=== PATIENT | male | born 1985 | race Caucasian/White ===

== ENCOUNTER 2016-10-16 18:34 | Emergency (ER) | payer OTHER ==
[~2016-10-16] VITALS: Ht 175.2 cm; Wt 90.7 kg
[~2016-10-16 18:34] MED LIST: 'PARAFON FORTE500 M1 PO; BACTRIM DS 8001 TA1 PO; CATAFLAM50 MG PO; CHERATUSSIN AC240 ML PO; CLARITIN10 MG PO; CYCLOBENZAPRINE10 MG PO; FLONASE ALLERG9.9 ML NAS; HYDROCODONE BIT1 T11 PO; INDOMETHACIN50 MG PO; MOTRIN800 MG PO; NAPROSYN500 MG PO; NKHM; NORCO 5-325 TA1 EACH PO; PREDNICOT20 MG PO; PREDNISONE10 MG PO; PREDNISONE50 MG PO; ROBITUSSIN AC 110 ML PO; SEPTRA DS 800 M1 TAB PO; ULTRAM50 MG PO; ZITHROMAX Z PA250 MG PO; ZOFRAN ODT4 MG SL; [UNRECOGNIZED DRUG - OTHER] TP
[2016-10-16] MEDS ORDERED: INDOMETHACIN50 MG PO (18:55)
[2016-10-16] MEDS ORDERED: HYDROCODONE BIT1 T11 PO (18:55)
== END 2016-10-16 18:58 | disposition home or self-care (01) ==
LOC: ED 18:34
DX: M10.9 Gout, unspecified (principal); F17.200 Nicotine dependence, unspecified, uncomplicated; I10 Essential (primary) hypertension

== ENCOUNTER 2016-11-01 15:30 | Emergency (ER) | payer OTHER ==
[~2016-11-01] VITALS: Ht 175.2 cm; Wt 90.7 kg
[2016-11-01] MEDS ORDERED: TESSALON PERLE100 M1 PO (17:18)
[2016-11-01] MEDS ORDERED: CLARITIN-D 12 H1 TAB PO (17:18)
[2016-11-01] MEDS ORDERED: HYCODAN/HYDROMET5 ML PO (17:18)
== END 2016-11-01 17:25 | disposition home or self-care (01) ==
LOC: ED 15:30
DX: J06.9 Acute upper respiratory infection, unspecified (principal)

== ENCOUNTER 2016-11-07 13:30 | Emergency (ER) | payer OTHER ==
[~2016-11-07 13:30] MED LIST changes: +CLARITIN-D 12 H1 TAB PO; +HYCODAN/HYDROMET5 ML PO; +TESSALON PERLE100 M1 PO
[2016-11-07 14:25] LABS: BASO # 0.1 10*3/uL (0.0-0.1); BASO % 0.6 % (0.0-1.0); EOS # 0.3 10*3/uL (0.0-0.4); EOS % 2.9 % (1.0-4.0); HEMATOCRIT 46.6 % (42.0-52.0); HEMOGLOBIN 14.7 g/dl (14.0-18.0); LYMPH # 1.4 10*3/uL (1.3-4.4); MEAN CORPUSCULAR HGB 23.7 pg (27.0-31.0); MEAN CORPUSCULAR HGB CONC 31.5 g/dl (33.0-37.0); MONO # 1.5 10*3/uL (0.1-1.0); MONO % 16.6 % (3.0-9.0); NEUT # 5.6 10*3/uL (2.3-7.9); NEUT % 63.4 % (47.0-73.0); PLATELET COUNT AUTOMATED 292 10*3/uL (130-400); RED BLOOD COUNT 6.21 10*6/uL (4.50-5.90); RED CELL DISTRI WIDTH 15.7 % (0-14.5); WHITE BLOOD COUNT 8.9 10*3/uL (4.8-10.8)
[2016-11-07 14:37] LABS: BUN 14 mg/dl (7-24); CARBON DIOXIDE 27 mmol/L (21-32); CHLORIDE 103 mmol/L (98-107); EST GLOM FILT AFRICAN AMERICAN > 60 ml/min; GLUCOSE 100 mg/dL (65-99); POTASSIUM 4.5 mmol/L (3.5-5.1); SODIUM 141 mmol/L (136-145)
[2016-11-07] MEDS ORDERED: PREDNISONE20 M1 PO (16:03)
[2016-11-07] MEDS ORDERED: PROAIR HFA8.5 GM INH (16:03)
[2016-11-07] MEDS ORDERED: VIBRAMYCIN100 MG PO (16:03)
== END 2016-11-07 16:19 | disposition home or self-care (01) ==
LOC: ED 13:30
PROVIDERS: Nurse Practitioner Family
DX: J20.9 Acute bronchitis, unspecified (principal); F17.200 Nicotine dependence, unspecified, uncomplicated

== ENCOUNTER 2017-01-05 13:24 | Emergency (ER) | payer OTHER ==
[~2017-01-05] VITALS: Wt 99.8 kg
[~2017-01-05 13:24] MED LIST changes: +PREDNISONE20 M1 PO; +PROAIR HFA8.5 GM INH; +VIBRAMYCIN100 MG PO
[2017-01-05] MEDS ORDERED: HYDROCODONE BIT1 T11 PO (13:48)
[2017-01-05] MEDS ORDERED: INDOMETHACIN50 MG PO (13:48)
== END 2017-01-05 13:54 | disposition home or self-care (01) ==
LOC: ED 13:24
DX: M10.9 Gout, unspecified (principal); I10 Essential (primary) hypertension; F17.200 Nicotine dependence, unspecified, uncomplicated; Z98.890 Other specified postprocedural states

== ENCOUNTER 2017-02-14 13:32 | Emergency (ER) | payer OTHER ==
[~2017-02-14] VITALS: Ht 177.8 cm; Wt 104.3 kg
[2017-02-14] MEDS ORDERED: HYDROCODONE BIT1 T11 PO (14:07)
[2017-02-14] MEDS ORDERED: INDOMETHACIN50 MG PO (14:07)
== END 2017-02-14 14:12 | disposition home or self-care (01) ==
LOC: ED 13:32
DX: M10.9 Gout, unspecified (principal); I10 Essential (primary) hypertension; F17.200 Nicotine dependence, unspecified, uncomplicated

== ENCOUNTER 2017-03-01 17:32 | Emergency (ER) | payer OTHER ==
[~2017-03-01] VITALS: Wt 104.3 kg
[2017-03-01] MEDS ORDERED: PREDNISONE20 M1 PO (18:19)
[2017-03-01] MEDS ORDERED: AMOXICILLIN500 M2 PO (18:19)
== END 2017-03-01 18:06 | disposition home or self-care (01) ==
LOC: ED 17:32
DX: J20.9 Acute bronchitis, unspecified (principal); M10.9 Gout, unspecified; F17.200 Nicotine dependence, unspecified, uncomplicated

== ENCOUNTER 2017-03-03 18:35 | Emergency (ER) | payer OTHER ==
[~2017-03-03] VITALS: Ht 177.8 cm; Wt 104.3 kg
[~2017-03-03 18:35] MED LIST changes: +AMOXICILLIN500 M2 PO
[2017-03-03] MEDS ORDERED: INDOMETHACIN50 MG PO (19:11)
== END 2017-03-03 19:59 | disposition home or self-care (01) ==
LOC: ED 18:35
DX: M10.9 Gout, unspecified (principal); I10 Essential (primary) hypertension; F17.200 Nicotine dependence, unspecified, uncomplicated

== ENCOUNTER 2017-06-28 16:20 | Emergency (ER) | payer OTHER ==
[~2017-06-28] VITALS: Ht 177.8 cm; Wt 113.4 kg
[2017-06-28] MEDS ORDERED: INDOMETHACIN50 MG PO (17:01)
== END 2017-06-28 19:39 | disposition home or self-care (01) ==
LOC: ED 16:20
DX: M10.9 Gout, unspecified (principal); M79.674 Pain in right toe(s); F17.200 Nicotine dependence, unspecified, uncomplicated; Z79.899 Other long term (current) drug therapy

== ENCOUNTER 2017-07-26 00:59 | Emergency (ER) | payer OTHER ==
[~2017-07-26] VITALS: Ht 177.8 cm; Wt 113.4 kg
[2017-07-26] MEDS ORDERED: CEPHALEXIN500 M1 PO (01:49)
== END 2017-07-26 02:04 | disposition home or self-care (01) ==
LOC: ED 00:59
DX: S61.212A Laceration without foreign body of right middle finger without damage to nail, initial encounter (principal); M10.9 Gout, unspecified; I10 Essential (primary) hypertension; Z79.899 Other long term (current) drug therapy; W25.XXXA Contact with sharp glass, initial encounter; Y93.89 Activity, other specified; Y92.89 Other specified places as the place of occurrence of the external cause; Y99.9 Unspecified external cause status

== ENCOUNTER 2017-10-05 23:49 | Emergency (ER) | payer OTHER ==
[~2017-10-05] VITALS: Ht 177.8 cm; Wt 113.4 kg
[~2017-10-05 23:49] MED LIST changes: +CEPHALEXIN500 M1 PO
[2017-10-06] MEDS ORDERED: INDOMETHACIN50 MG PO (00:09)
== END 2017-10-06 00:17 | disposition home or self-care (01) ==
LOC: ED 23:49
DX: M10.9 Gout, unspecified (principal); F17.200 Nicotine dependence, unspecified, uncomplicated; F10.10 Alcohol abuse, uncomplicated

== ENCOUNTER 2017-10-19 22:59 | Emergency (ER) | payer OTHER ==
[~2017-10-19] VITALS: Ht 175.2 cm; Wt 104.3 kg
[2017-10-20] MEDS ORDERED: TESSALON PERLE100 M1 PO (00:27)
[2017-10-20] MEDS ORDERED: PROAIR HFA8.5 GM INH (00:27)
[2017-10-20] MEDS ORDERED: HYCODAN/HYDROMET5 ML PO (00:27)
== END 2017-10-20 00:43 | disposition home or self-care (01) ==
LOC: ED 22:59
DX: B34.9 Viral infection, unspecified (principal); F17.200 Nicotine dependence, unspecified, uncomplicated

== ENCOUNTER 2018-02-28 12:16 | Emergency (ER) | payer OTHER ==
[~2018-02-28] VITALS: Ht 177.8 cm; Wt 102.1 kg
[2018-02-28] MEDS ORDERED: NAPROSYN500 MG PO (13:19)
[2018-02-28] MEDS ORDERED: MEDROL DOSEPAK4 MG PO (13:19)
[2018-02-28] MEDS ORDERED: CYCLOBENZAPRINE10 MG PO (13:19)
== END 2018-02-28 13:30 | disposition home or self-care (01) ==
LOC: ED 12:16
DX: M54.41 Lumbago with sciatica, right side (principal); F17.200 Nicotine dependence, unspecified, uncomplicated; F10.10 Alcohol abuse, uncomplicated

== ENCOUNTER 2018-04-19 10:54 | Emergency (ER) | payer OTHER ==
[~2018-04-19] VITALS: Ht 175.2 cm; Wt 99.8 kg
[~2018-04-19 10:54] MED LIST changes: +MEDROL DOSEPAK4 MG PO
== END 2018-04-19 11:18 | disposition home or self-care (01) ==
LOC: ED 10:54
DX: M10.9 Gout, unspecified (principal)

== ENCOUNTER 2018-06-29 10:43 | Emergency (ER) | payer SELFPAY ==
[~2018-06-29] VITALS: Ht 177.8 cm; Wt 98.9 kg
[~2018-06-29 10:43] MED LIST changes: +DELTASONE20 M1 PO; +PROVENTIL HFA6.7 GM INH; +ZITHROMAX250 MG PO
[2018-06-29] MEDS ORDERED: ZITHROMAX250 MG PO ×2 (11:21→11:25)
== END 2018-06-29 11:48 | disposition home or self-care (01) ==
LOC: ED 10:43
DX: J40 Bronchitis, not specified as acute or chronic (principal); M10.9 Gout, unspecified; I10 Essential (primary) hypertension; Z79.899 Other long term (current) drug therapy

== ENCOUNTER 2018-09-18 15:18 | Emergency (ER) | payer SELFPAY ==
[~2018-09-18] VITALS: Ht 177.8 cm; Wt 99.8 kg
[2018-09-18] MEDS ORDERED: INDOMETHACIN ER75 M1 PO (15:44)
== END 2018-09-18 15:59 | disposition home or self-care (01) ==
LOC: ED 15:18
DX: M10.9 Gout, unspecified (principal); Z79.899 Other long term (current) drug therapy

== ENCOUNTER 2018-10-30 14:29 | Emergency (ER) | payer SELFPAY ==
[~2018-10-30] VITALS: Ht 177.8 cm; Wt 99.8 kg
[~2018-10-30 14:29] MED LIST changes: +INDOMETHACIN ER75 M1 PO
[2018-10-30] MEDS ORDERED: INDOMETHACIN50 MG PO (14:44)
== END 2018-10-30 15:10 | disposition home or self-care (01) ==
LOC: ED 14:29
DX: M10.071 Idiopathic gout, right ankle and foot (principal)

== ENCOUNTER 2018-12-18 04:54 | Emergency (ER) | payer BC ==
[~2018-12-18] VITALS: Ht 177.8 cm; Wt 99.8 kg
[2018-12-18 05:10] LABS: BASO # 0.1 10*3/uL (0.0-0.1); BASO % 0.7 % (0.0-1.0); EOS # 0.2 10*3/uL (0.0-0.4); EOS % 2.7 % (1.0-4.0); HEMATOCRIT 43.6 % (42.0-52.0); HEMOGLOBIN 13.2 g/dl (14.0-18.0); LYMPH # 2.3 10*3/uL (1.3-4.4); LYMPH % 30.1 % (27.0-41.0); MEAN CELL VOLUME 70.4 fl (80.0-94.0); MEAN CORPUSCULAR HGB 21.3 pg (27.0-31.0); MEAN CORPUSCULAR HGB CONC 30.3 g/dl (33.0-37.0); MEAN PLATELET VOLUME 8.9 fl (9.6-12.3); MONO % 12.9 % (3.0-9.0); NEUT % 53.3 % (47.0-73.0); PLATELET COUNT AUTOMATED 329 10*3/uL (130-400); RED BLOOD COUNT 6.19 10*6/uL (4.50-5.90); RED CELL DISTRI WIDTH 20.7 % (0-14.5); WHITE BLOOD COUNT 7.5 10*3/uL (4.8-10.8)
[2018-12-18 05:32] LABS: ALBUMIN 3.6 gm/dl (3.1-4.5); ALKALINE PHOSPHATASE 53 U/L (45-117); BUN 13 mg/dl (7-24); CHLORIDE 109 mmol/L (98-107); CREATININE 0.97 mg/dL (0.70-1.30); LIPASE 241 U/L (73-393); POTASSIUM 3.9 mmol/L (3.5-5.1); SGOT/AST 60 IU/L (3-35); SGPT/ALT 187 U/L (12-78); SODIUM 141 mmol/L (136-145); TOTAL PROTEIN 7.6 gm/dL (6.4-8.2)
[2018-12-18 06:29] LABS: BILIRUBIN NEGATIVE (NEGATIVE); BLOOD NEGATIVE (NEGATIVE); CLARITY SL CLOUDY (CLEAR); COLOR YELLOW (YELLOW); GLUCOSE NEGATIVE (NEGATIVE); KETONE TRACE (NEGATIVE); LEUKO ESTERASE NEGATIVE (NEGATIVE); NITRITE NEGATIVE (NEGATIVE)
[2018-12-18 06:40] LABS: BACTERIA 1+; EPITHELIAL CELLS 0-2; WBC 0-2 wbc/hpf (0-5)
== END 2018-12-18 06:59 | disposition home or self-care (01) ==
LOC: ED 04:54
PROVIDERS: Student in an Organized Health Care Education/Training Program
DX: R10.9 Unspecified abdominal pain (principal); I10 Essential (primary) hypertension; Z79.899 Other long term (current) drug therapy

== ENCOUNTER 2019-01-01 09:35 | Emergency (ER) | payer BC ==
[~2019-01-01] VITALS: Ht 177.8 cm; Wt 97.5 kg
[2019-01-01] MEDS ORDERED: TESSALON PERLE100 M1 PO (10:58)
[2019-01-01] MEDS ORDERED: PROVENTIL HFA6.7 GM INH (10:58)
[2019-01-01] MEDS ORDERED: PREDNISONE20 M1 PO (10:58)
[2019-01-01] MEDS ORDERED: ZITHROMAX250 MG PO (10:58)
== END 2019-01-01 11:03 | disposition home or self-care (01) ==
LOC: ED 09:35
DX: J40 Bronchitis, not specified as acute or chronic (principal); Z79.899 Other long term (current) drug therapy

== ENCOUNTER 2019-02-14 11:41 | Emergency (ER) | payer BC ==
[~2019-02-14] VITALS: Ht 177.8 cm; Wt 99.8 kg
[2019-02-14] MEDS ORDERED: INDOMETHACIN50 MG PO (11:59)
== END 2019-02-14 12:15 | disposition home or self-care (01) ==
LOC: ED 11:41
DX: M10.9 Gout, unspecified (principal); M79.674 Pain in right toe(s)

== ENCOUNTER 2019-03-13 11:27 | Emergency (ER) | payer BC ==
[~2019-03-13] VITALS: Ht 177.8 cm; Wt 104.3 kg
[2019-03-13] MEDS ORDERED: NAPROSYN500 MG PO (12:37)
[2019-03-13] MEDS ORDERED: PREDNISONE50 MG PO (12:37)
== END 2019-03-13 12:51 | disposition home or self-care (01) ==
LOC: ED 11:27
DX: M10.9 Gout, unspecified (principal); F17.200 Nicotine dependence, unspecified, uncomplicated

== ENCOUNTER 2019-05-18 14:32 | Emergency (ER) | payer BC ==
[~2019-05-18] VITALS: Ht 175.2 cm; Wt 106.6 kg
[2019-05-18] MEDS ORDERED: INDOMETHACIN50 MG PO (14:58)
== END 2019-05-18 15:03 | disposition home or self-care (01) ==
LOC: ED 14:32
DX: M10.071 Idiopathic gout, right ankle and foot (principal); Z79.899 Other long term (current) drug therapy

== ENCOUNTER 2019-06-20 10:31 | Emergency (ER) | payer BC ==
[~2019-06-20] VITALS: Wt 104.3 kg
[2019-06-20] MEDS ORDERED: MEDROL DOSEPAK4 MG PO (10:57)
== END 2019-06-20 11:15 | disposition home or self-care (01) ==
LOC: ED 10:31
DX: M10.9 Gout, unspecified (principal); M79.671 Pain in right foot; I10 Essential (primary) hypertension

== ENCOUNTER 2019-07-17 12:07 | Emergency (ER) | payer BC ==
[~2019-07-17] VITALS: Ht 177.8 cm; Wt 108.9 kg
[2019-07-17] MEDS ORDERED: PREDNISONE20 M1 PO (12:41)
[2019-07-17] MEDS ORDERED: PROVENTIL HFA6.7 GM INH (12:41)
[2019-07-17] MEDS ORDERED: TESSALON PERLE100 M1 PO (12:41)
== END 2019-07-17 12:51 | disposition home or self-care (01) ==
LOC: ED 12:07
DX: J40 Bronchitis, not specified as acute or chronic (principal); F17.200 Nicotine dependence, unspecified, uncomplicated; Z79.899 Other long term (current) drug therapy

== ENCOUNTER 2021-06-17 18:11 | Emergency (ER) | payer OTHER | END 2021-06-17 21:33 | disposition left against medical advice (07) | LOC: ED 18:11 | DX: R05 Cough (principal); Z53.21 Procedure and treatment not carried out due to patient leaving prior to being seen by health care provider ==

== ENCOUNTER 2022-02-02 16:22 | Emergency (ER) | payer OTHER ==
[~2022-02-02] VITALS: Wt 104.8 kg
== END 2022-02-02 17:40 | disposition home or self-care (01) ==
LOC: ED 16:22
DX: K11.1 Hypertrophy of salivary gland (principal); M10.9 Gout, unspecified; I10 Essential (primary) hypertension

== ENCOUNTER 2022-04-14 15:37 | Emergency (ER) | payer OTHER ==
[~2022-04-14] VITALS: Ht 177.8 cm; Wt 113.4 kg
== END 2022-04-14 18:49 | disposition left against medical advice (07) ==
LOC: ED 15:37
DX: R11.2 Nausea with vomiting, unspecified (principal); Z53.21 Procedure and treatment not carried out due to patient leaving prior to being seen by health care provider

== ENCOUNTER 2022-05-14 10:24 | Emergency (ER) | payer OTHER ==
[~2022-05-14] VITALS: Wt 113.4 kg
[2022-05-14] MEDS ORDERED: NAPROSYN500 MG PO (13:19)
[2022-05-14] MEDS ORDERED: CYCLOBENZAPRINE10 MG PO (13:19)
== END 2022-05-14 13:31 | disposition home or self-care (01) ==
LOC: ED 10:24
DX: S43.402A Unspecified sprain of left shoulder joint, initial encounter (principal); F17.200 Nicotine dependence, unspecified, uncomplicated; X50.1XXA Overexertion from prolonged static or awkward postures, initial encounter; X50.3XXA Overexertion from repetitive movements, initial encounter; Y93.89 Activity, other specified; Y92.89 Other specified places as the place of occurrence of the external cause; Y99.8 Other external cause status

== ENCOUNTER 2022-08-09 16:36 | Emergency (ER) | payer OTHER ==
[~2022-08-09] VITALS: Ht 177.8 cm; Wt 99.8 kg
[2022-08-09] MEDS ORDERED: ONDANSETRON4 MG SL (17:56)
== END 2022-08-09 18:19 | disposition home or self-care (01) ==
LOC: ED 16:36
DX: R11.0 Nausea (principal)

== ENCOUNTER 2022-09-24 13:52 | Emergency (ER) | payer OTHER ==
[~2022-09-24] VITALS: Wt 99.8 kg
[~2022-09-24 13:52] MED LIST changes: +ONDANSETRON4 MG SL
== END 2022-09-24 15:09 | disposition home or self-care (01) ==
LOC: ED 13:52
DX: S93.402A Sprain of unspecified ligament of left ankle, initial encounter (principal); W18.39XA Other fall on same level, initial encounter; Y93.89 Activity, other specified; Y92.89 Other specified places as the place of occurrence of the external cause; Y99.8 Other external cause status

== ENCOUNTER 2022-10-16 19:55 | Emergency (ER) | payer OTHER ==
[~2022-10-16] VITALS: Ht 177.8 cm; Wt 104.3 kg
[2022-10-16 20:24] LABS: BILIRUBIN Negative (Negative); BLOOD Negative (Negative); CLARITY Clear (Clear); COLOR Orange (Yellow); GLUCOSE Negative (Negative); KETONE Trace (Negative); LEUKO ESTERASE Negative (Negative); NITRITE Negative (Negative); SPECIFIC GRAVITY 1.025 (1.001-1.030)
[2022-10-16 20:32] LABS: BACTERIA TRACE; RBC 0-2 rbc/hpf (0-2); WBC 0-2 wbc/hpf (0-5)
[2022-10-16] MEDS ORDERED: METHOCARBAMOL500 M1 PO (21:38)
[2022-10-16] MEDS ORDERED: NAPROXEN250 MG PO (21:38)
== END 2022-10-16 22:14 | disposition home or self-care (01) ==
LOC: ED 19:55
PROVIDERS: Internal Medicine
DX: M54.50 Low back pain, unspecified (principal); Z98.890 Other specified postprocedural states; F10.90 Alcohol use, unspecified, uncomplicated

== ENCOUNTER 2023-02-01 10:15 | Emergency (ER) | payer OTHER ==
[~2023-02-01] VITALS: Ht 175.2 cm; Wt 90.7 kg
[~2023-02-01 10:15] MED LIST changes: +METHOCARBAMOL500 M1 PO; +NAPROXEN250 MG PO
[2023-02-01] MEDS ORDERED: ONDANSETRON4 MG SL (11:50)
== END 2023-02-01 12:00 | disposition home or self-care (01) ==
LOC: ED 10:15
DX: R11.2 Nausea with vomiting, unspecified (principal); R68.83 Chills (without fever); Z98.890 Other specified postprocedural states; M10.9 Gout, unspecified

== ENCOUNTER 2023-05-20 16:17 | Emergency (ER) | payer OTHER ==
[~2023-05-20] VITALS: Ht 175.2 cm; Wt 90.7 kg
[2023-05-20] MEDS ORDERED: AMOX-CLAV 875-1 EACH PO (17:16)
== END 2023-05-20 17:27 | disposition home or self-care (01) ==
LOC: ED 16:17
DX: I88.9 Nonspecific lymphadenitis, unspecified (principal); H92.02 Otalgia, left ear; M10.9 Gout, unspecified; Z98.890 Other specified postprocedural states; F17.200 Nicotine dependence, unspecified, uncomplicated

== ENCOUNTER 2023-08-20 09:57 | Emergency (ER) | payer OTHER ==
[~2023-08-20] VITALS: Wt 99.8 kg
[~2023-08-20 09:57] MED LIST changes: +AMOX-CLAV 875-1 EACH PO
[2023-08-20] MEDS ORDERED: NAPROXEN500 MG PO (12:21)
== END 2023-08-20 12:28 | disposition home or self-care (01) ==
LOC: ED 09:57
DX: S83.92XA Sprain of unspecified site of left knee, initial encounter (principal); K21.9 Gastro-esophageal reflux disease without esophagitis; M10.9 Gout, unspecified; Z98.890 Other specified postprocedural states; W22.8XXA Striking against or struck by other objects, initial encounter; Y93.72 Activity, wrestling; Y92.89 Other specified places as the place of occurrence of the external cause; Y99.8 Other external cause status

== ENCOUNTER 2024-05-14 02:35 | Emergency (ER) | payer OTHER ==
[~2024-05-14] VITALS: Ht 172.7 cm; Wt 99.8 kg
[~2024-05-14 02:35] MED LIST changes: +NAPROXEN500 MG PO
[2024-05-14] MEDS ORDERED: Doxycycline Hyclate 100 MG CAP PO ONE (02:50)
[2024-05-14] MEDS ORDERED: VIBRAMYCIN100 MG PO (02:53)
== END 2024-05-14 02:58 | disposition home or self-care (01) ==
LOC: ED 02:35
DX: L73.2 Hidradenitis suppurativa (principal); K21.9 Gastro-esophageal reflux disease without esophagitis; M10.9 Gout, unspecified; Z98.890 Other specified postprocedural states

== ENCOUNTER 2024-08-13 19:14 | Emergency (ER) | payer OTHER ==
[~2024-08-13] VITALS: Ht 175.2 cm; Wt 92.5 kg
[2024-08-13] MEDS ORDERED: PREDNISONE10 MG PO (20:12)
[2024-08-13] MEDS ORDERED: predniSONE 20 MG TAB PO ONE (20:15)
== END 2024-08-13 20:18 | disposition home or self-care (01) ==
LOC: ED 19:14
DX: J40 Bronchitis, not specified as acute or chronic (principal); K21.9 Gastro-esophageal reflux disease without esophagitis; M10.9 Gout, unspecified; F17.290 Nicotine dependence, other tobacco product, uncomplicated; Z98.890 Other specified postprocedural states

== ENCOUNTER 2025-08-25 15:01 | Emergency (ER) | payer OTHER ==
[~2025-08-25] VITALS: Ht 172.7 cm; Wt 97.5 kg
[2025-08-25] MEDS ORDERED: Metoclopramide Hydrochloride 10 MG/2 ML VIAL IV ONE (15:40)
[2025-08-25] MEDS ORDERED: SODIUM CHLORIDE 0.9% 1,000 ML IV ONE (15:40)
[2025-08-25 16:13] LABS: BASO # 0.1 10*3/uL (0.0-0.1); BASO % 0.9 % (0.0-1.0); EOS # 0.2 10*3/uL (0.0-0.4); EOS % 2.4 % (1.0-4.0); MEAN CELL VOLUME 63.5 fl (80.0-94.0); MEAN CORPUSCULAR HGB 17.7 pg (27.0-31.0); MEAN PLATELET VOLUME 9.6 fl (9.6-12.3); MONO # 1.0 10*3/uL (0.1-1.0); MONO % 12.6 % (3.0-9.0); NEUT # 5.0 10*3/uL (2.3-7.9); NEUT % 61.4 % (47.0-73.0); NUCLEATED RED BLOOD CELL 0.0 % (0.0-0.0); NUCLEATED RED BLOOD CELL 0.0 10*3/uL (0.0-0.0); PLATELET COUNT AUTOMATED 289 10*3/uL (130-400); RED CELL DISTRI WIDTH 20.8 % (0-14.5)
[2025-08-25 16:31] LABS: BUN 8 mg/dl (9-23)
== END 2025-08-25 18:06 | disposition left against medical advice (07) ==
LOC: ED 15:01
DX: A08.4 Viral intestinal infection, unspecified (principal); I10 Essential (primary) hypertension; M10.9 Gout, unspecified; K21.9 Gastro-esophageal reflux disease without esophagitis; Z20.822 Contact with and (suspected) exposure to COVID-19